=== PATIENT | female | born 1985 | race Caucasian/White ===

== ENCOUNTER → 2018-07-14 | Outpatient (CLI) | payer OTHER ==
--- NOTE | 2018-07-14 12:07 | KCIC ---
Examination: CT ABDOMEN PELVIS WO CONTRAST History: Left lower quadrant pain. Left flank pain. History renal stones. Comparison/Correlation: None Findings: Axial images of the abdomen and pelvis were obtained without contrast. Sagittal and coronal reformatted images provided. Visualized lung bases are clear. Diffuse fatty infiltration of liver noted. Borderline splenomegaly is present with the spleen measuring 14 cm longitudinal. Pancreas and adrenal glands are unremarkable. Cholecystectomy noted. Punctate nonobstructive right renal lower pole calyceal calculus is present. No radiopaque left collecting system calculus. No hydronephrosis. Urinary bladder is partially decompressed and unremarkable. Appendix is normal. No extraluminal gas. No bowel obstruction. No enlarged abdominal or pelvic lymph nodes. Small umbilical hernia contains omental fat. Hysterectomy noted. Abdominal wall scarring at the pelvic level noted. Bony structures are unremarkable. Impression: Nonobstructive punctate right renal calculus. Fatty infiltration of the liver. Splenomegaly. PQRS Compliance Statement: One or more of the following individualized dose reduction techniques were utilized for this examination: 1. Automated exposure control 2. Adjustment of the mA and/or kV according to patient size 3. Use of iterative reconstruction technique Electronically signed by: Erick Camarena MD (07/14/2018 12:04 PM) [id number]
== END | disposition home or self-care (01) ==
LOC: KCIC CT 11:24
PROVIDERS: ATTEND Nurse Practitioner Gerontology
DX: N20.0 Calculus of kidney (principal); K76.0 Fatty (change of) liver, not elsewhere classified; R16.1 Splenomegaly, not elsewhere classified; K42.9 Umbilical hernia without obstruction or gangrene; Z90.49 Acquired absence of other specified parts of digestive tract; Z90.710 Acquired absence of both cervix and uterus
CPT/HCPCS: 74176